=== PATIENT | female | born 1995 | race Caucasian/White ===

== ENCOUNTER 2024-02-09 02:17 | Outpatient (CLI) | payer BC, SELFPAY ==
[2024-02-09 15:41] LABS: Abs Immature Grans 0.02 10^3/uL (0.0-0.06); Absolute Basophil Count 0.03 10^3/uL (0.0-0.2); Absolute Eosinophil Count 0.03 10^3/uL (0.0-0.7); Absolute Lymphocyte Count 1.15 10^3/uL (1.2-3.4); Absolute Monocyte Count 0.49 10^3/uL (0.1-0.8); Absolute Neutrophil Count 6.36 10^3/uL (1.2-6.7); Basophils % 0.4 %; Eosinophils % 0.4 %; HCT 40.9 % (36.0-46.0); HGB 13.7 g/dL (11.2-15.7); Immature Grans % 0.2 %; Lymphocytes % 14.2 %; MCH 30.6 pg (27.0-33.0); MCHC 33.5 % (32.0-36.0); MCV 92 fL (80-95); MPV 11.4 fL (8.0-11.0); Monocytes % 6.1 %; Neutrophils % 78.7 %; Platelet Count 247 10^3/uL (130-400); RBC 4.47 10^6/uL (3.93-5.22); RDW 12.2 % (11.7-14.6); RDW-SD 41.1 fL; WBC 8.08 10^3/uL (4.4-10.8)
[2024-02-09 17:21] LABS: TSH (W/Ref FT4) 0.78 uIU/mL (0.36-3.74)
[2024-02-09 17:39] LABS: Panorama Kit Sent via Fed Ex
[2024-02-10 08:54] LABS: Hepatitis B Surface Ag Negative (Negative)
[2024-02-10 09:34] LABS: Hepatitis C Ab w Rflx HCV PCR Negative (Negative)
[2024-02-10 09:42] LABS: HIV-1/2 Ag & Ab Screen Negative (Negative)
[2024-02-10 11:09] LABS: Varicella IgG Antibody Negative (See Note)
[2024-02-10 11:12] LABS: Rubella IgG Ab (UVM) Positive (See Note)
[2024-02-11 15:49] LABS: Syphilis IgG w/Reflex Nonreactive (Nonreactive)
[2024-02-18 10:16] LABS: Specimen WB Whole Blood
[2024-02-29 14:36] LABS: Result Summary NEGATIVE; Specimen WB Whole Blood
== END 2024-02-09 02:18 | disposition home or self-care (01) ==
LOC: LBO 02:18
PROVIDERS: Visit Provider Advanced Practice Midwife
DX: Z34.91 Encounter for supervision of normal pregnancy, unspecified, first trimester (principal); I49.9 Cardiac arrhythmia, unspecified; E84.9 Cystic fibrosis, unspecified
CPT/HCPCS: 36415; 81220; 81222; 81329; 86787; 86803; 86850; 86900; 86901; 87340; 87389; 84443; 85025; 86762; 86780

== ENCOUNTER 2024-02-09 14:41 | Outpatient (REF) | payer BC, SELFPAY ==
[2024-02-10 12:21] LABS: Chlamydia Result Negative (Negative); GC Result Negative (Negative)
== END 2024-02-09 14:42 | disposition home or self-care (01) ==
LOC: LBN 14:41
PROVIDERS: Visit Provider Advanced Practice Midwife
DX: Z34.91 Encounter for supervision of normal pregnancy, unspecified, first trimester (principal); Z3A.12 12 weeks gestation of pregnancy
CPT/HCPCS: 87491; 87591; 87086

== ENCOUNTER 2024-05-29 02:16 | Outpatient (CLI) | payer BC, SELFPAY ==
[2024-05-29 11:15] LABS: HCT 35.8 % (36.0-46.0); MCH 31.3 pg (27.0-33.0); MCHC 33.5 % (32.0-36.0); MCV 94 fL (80-95); MPV 10.5 fL (8.0-11.0); Platelet Count 224 10^3/uL (130-400); RBC 3.83 10^6/uL (3.93-5.22); RDW 12.7 % (11.7-14.6); RDW-SD 43.5 fL
[2024-05-29 12:13] LABS: Glucose,1 Hr (Glucola) 122 mg/dL (80-140)
== END 2024-05-29 02:17 | disposition home or self-care (01) ==
PROVIDERS: Visit Provider Advanced Practice Midwife
DX: Z34.92 Encounter for supervision of normal pregnancy, unspecified, second trimester (principal)
CPT/HCPCS: 36415; 82950; 85027; 86850; 90384

== ENCOUNTER 2024-07-27 19:17 | Outpatient (REF) | payer BC, SELFPAY | END 2024-07-27 19:18 | disposition home or self-care (01) | LOC: LBN 19:17 | PROVIDERS: Visit Provider Advanced Practice Midwife | DX: Z34.93 Encounter for supervision of normal pregnancy, unspecified, third trimester (principal) | CPT/HCPCS: 87081 ==

== ENCOUNTER 2024-08-11 16:32 | Inpatient (IN) | payer BC, SELFPAY ==
[2024-08-11] VITALS (7 sets, daily range): BP systolic 112–130; BP diastolic 77–87; PULSE 78–89; RESP 16; TEMP 36.6–37; O2SAT 100
--- NOTE | 2024-08-11 16:33 | HPE_ITS ---
Date of service: 08/11/24 Time of Service: 16:33 Assessment and Plan Assessment and plan (1) PROM (premature rupture of membranes): Status: Acute Assessment and plan: A: 28 yo G1 @ 38+5 wks, PROM confirmed, clear fluid Category 1 tracing, GBS negative, favorable cvx w/momin score=8 No increased risk for SD or PPH P: Discussed options in plan of care with pt, including risks and benefits Recommendation to begin pitocin induction reviewed Pt prefers to delay pitocin infusion, opts for ambulation& expectant management Intermittent auscultation, oral intake, comfort measures as requested Anticipate FABBY, Dr. Bell available for consult prn (2) Penicillin allergy: Status: Acute Assessment and plan: [facility] [place] allergy consult determined PCN allergy is potentially severe Recommended to avoid all beta-latam's (3) Rh negative state in antepartum period: Status: Acute Assessment and plan: Plan RhoGam if indicated by cord blood results (4) 38 weeks gestation of : Status: Acute OB-HPI Labor/Delivery History of Present Illness Reason for Visit: PROM at 38 wks Chief Complaint: Suspected Rupture of Membranes , Associated Signs and Symptoms of Suspected ROM: large gush of fluids at 1050 today, persistent trickling ever since, occasional uterine contraction that is stronger than BH contractions.. DOMINGO Calculator Estimated Delivery Date Method Current WG Current Estimate 08/20/24 LMP (Certain) 38w 5d Other Estimates 08/23/24 Ultrasound #1 38w 2d History of Present Expected Delivery Route/Plan - CNM FOB/ - [place] (first child) BG- Varicella non-immune, offer vaccine Interested in [employer] bir[facility] classes Would like to use the tub for labor GBS negative Specific Issues/Plan 1. Genetic testing options - cfDNA low risk female, SMA-neg, CF neg, declines AFP 2. Irregular heart rate - EKG shows PVCs at primary care office. 3. History of anxiety and depression, treated with medications in the past, sees a therapist regularly. TSH 0.78 4. Rh neg, FOB is A+, Rhogam at 28 weeks, on 05/29/24 5. PCN age 7: severe hives & face/throat swollen, to ED & stayed overnight, not admitted 5a. [facility] [place] allergy consult: see scanned note, recommend avoid all beta-lactam's , plan clinda or Vanc if GBS+ 6. Desires LC consult after 36 wks ___ 7. 20 wk U/S with echogenic bowel foci, radiologist's impression that this is of no clinical significance Assessment: History Reviewed & Current Informed Consent Informed Consent: Induction of Labor (discussed recommended use of pitocin to b ring on labor after PROM, pt declines at this time) and Risk,Benefits,Alternatives Discussed Review of Systems Narrative: ROS completed and found to be noncontributory other than HPI PFSH All Active Problems (Updated 08/11/24 @ 17:04 by Tracy Adams) 38 weeks gestation of (Acute) PROM (premature rupture of membranes) (Acute) Penicillin allergy (Acute) Migraine (Chronic) Maternal varicella, non-immune (Acute) Rh negative state in antepartum period (Acute) Irregular heart rhythm (Acute) EKG with PCP 11/2023 (Acute) Medical History (Updated 08/11/24 @ 17:04 by Tracy Adams) Penicillin adverse reaction Depression Anxiety Buspirone in the past Surgical History (Updated 02/09/24 @ 13:23 by Alecia Lechuga CNM) History of cholecystectomy 11/2021 at [facility] Family History (Updated 02/09/24 @ 13:28 by Alecia Lechuga CNM) Mother Autoimmune disease History of cholecystectomy Depression Maternal Grandmother Hypertension History of cholecystectomy Depression Social History Smoking/Tobacco Use Status: Never Smoking risk assessment performed?: Yes Alcohol Intake: never Drug use: Never Substance use type: does not use Housing: house Do you feel safe at home: Yes Do you feel safe in your relationship?: Yes History History 2 Para 0 Hx # Term Pregnancies 0 Multiple births 0 Hx # Pregnancies 0 Ectopic pregnancies 0 AB induced 0 Hx Number of Living Children 0 AB spontaneous 1 Past Pregnancies Del. Date GA/Weeks # Preg Succ Route Wgt Sex Labor Lgth Anesth esia Location Prov Complic 05/27/22 No Meds Allergies and Home Medications Allergies Allergy/AdvReac Type Severity Reaction Status Date / Time Penicillins Allergy Other (See Verified 08/04/24 15:27 Comment) Home Medications ?Medication ?Instructions ?Recorded ?Confirmed ?Type vitamin#30 30 mg iron-10 1 cap PO .QD 01/17/24 08/11/24 History mg iron-folic acid 1 mg-omg3 capsule Exam Physical Exam Vital signs: Pulse BP 89 112/77 08/11/24 16:14 08/11/24 16:14 Vital Signs Reviewed: Yes Constitutional Constitutional: no acute distress, average body habitus and cooperative Detailed Labor and Delivery Exam Dilation: 3 Effacement (%): 80 station: -3 Cervix position: mid Consistency: soft MOMIN Score(Cervical Ripeness Score): 8 Amniotic Membrane Status: Ruptured Rupture Method: Spontaneous Pooling: Positive Nitrazine: Positive Ferning: Present Contraction Frequency(min): iregular, q5-7 Contraction Intensity: Mild Fetus A Heart Rate Baseline: 145 Monitor Accelerations: 15 X 15 Monitor Decelerations: None Variability: Moderate (6-25 BPM) Categories: Category I Est. Weight: 7 lb 7.931 oz Est. Weight: 3400 gms Date of Membrane Rupture: 08/11/24 Time of Membrane Rupture: 10:50 HEENT Exam HEENT Exam: Normal Neck Exam Neck Exam: Normal Chest/Brest/Axilla Exam Chest Exam: Normal Breast Exam Breast Exam: Not Done Respiratory Exam Respiratory Exam: Normal Cardiovascular Exam Cardiovascular Exam: Normal Abdominal Exam Abdominal Exam: Normal (gravid, nontender) Rectal Exam Rectal Exam: Normal Exam Exam: Normal Extremities Exam Extremities Exam: Normal Back/Spine/Pelvis Exam Back Exam: Normal Pelvis Adequate: Yes Skin Exam Skin Exam: Normal Neurological Exam Neurological Exam: Normal Psychiatric Exam Psychiatric Exam: Normal Results Results Group Beta Strep: Negative Blood Type: A- (rec'ed RhoGam at 28 wks) Rubella Status: Immune Varicella Immunity: Nonimmune Risk Assessment Risk for Shoulder Dystocia Historical/Initial OB: NEGATIVE FOR: Pelvic Abnormality, Pre- BMI>30, Previous Shoulder Dystocia or Previous Macrosomia 36 Weeks: POSITIVE FOR: Maternal Weight Gain>40lbs; NEGATIVE FOR: Current Gestational DM or EFW>4500gms Increased Risk?: No Counseling: risk due to primipara status and elevated BMI/wt gain Delivery Plan @ 36wks: Risk for Pre-Eclampsia Yes, if one or more: NEGATIVE FOR: Hx Pre-E/Gest HTN, Chronic HTN, Multiple Gestation, Pre-gestational DM, Renal Disease, Systemic Lupus or APA Syndrome Yes, if 2 or more: POSITIVE FOR: Nulliparity; NEGATIVE FOR: Age>= 35 yrs, >10yr btwn pregnancies, BMI>30, ethinicty, Mother/Sister w/ Pre-E or Previous IUGR Risk for Post- Hemorrhage Initial: NEGATIVE FOR: Multiple Gestation, Previous PPH, Known Clotting Deficiency, Grand Multiparity or Anticoagulation 36 Weeks: NEGATIVE FOR: Anemia, hgb<10, Low platelets(thrombocytopenia), Gesta tional HTN or Pre-E, Polyhydraminios or EFW>4500gms At Risk?: No Counseled re: Active Management: Yes Risks Reviewed Risks Reviewed Upon Admission: Yes
[2024-08-11 17:07] LABS: HCT 37.3 % (36.0-46.0); HGB 12.5 g/dL (11.2-15.7); MCH 30.1 pg (27.0-33.0); MCHC 33.5 % (32.0-36.0); MCV 90 fL (80-95); MPV 11.6 fL (8.0-11.0); Platelet Count 217 10^3/uL (130-400); RBC 4.15 10^6/uL (3.93-5.22); RDW 13.3 % (11.7-14.6); RDW-SD 43.7 fL; WBC 11.27 10^3/uL (4.4-10.8)
--- NOTE | 2024-08-11 22:51 | W.PM.OBNL1 ---
Date of service: 08/11/24 Time of Service: 22:51 Pelvic Exam Dilation: 5 Effacement (%): 90 station: -2 Cervix Position: mid Consistency: soft Contractions Monitor Mode: External Contraction Frequency(min): q4-5 Intensity: Moderate Fetus A Monitor: External (US) Heart Rate Baseline: 140 Variability: Moderate (6-25 BPM) Categories: Category I Accelerations: Present Decelerations: None Amniotic Membrane Status: Ruptured Assessment and Plan Assessment and plan (1) PROM (premature rupture of membranes): Status: Acute Assessment and plan: A: PROM x12 hrs, early labor becoming more active pt declines pitocin augmentation, is coping well afebrile and normotensive P: Continue expectant management Anticipate Objective Abnormal lab results 08/11/24 Range/Units 16:53 WBC 11.27 H (4.4-10.8) 10^3/uL MPV 11.6 H (8.0-11.0) fL Temp Pulse Resp BP Pulse Ox 98.2 F 85 16 130/87 100 08/11/24 22:15 08/11/24 22:15 08/11/24 22:15 08/11/24 22:15 08/11/24 22:15 Laboratory Results WBC 11.27 10^3/uL (4.4-10.8) H 08/11/24 16:53 RBC 4.15 10^6/uL (3.93-5.22) 08/11/24 16:53 Hgb 12.5 g/dL (11.2-15.7) 08/11/24 16:53 Hct 37.3 % (36.0-46.0) 08/11/24 16:53 MCV 90 fL (80-95) 08/11/24 16:53 MCH 30.1 pg (27.0-33.0) 08/11/24 16:53 MCHC 33.5 % (32.0-36.0) 08/11/24 16:53 RDW 13.3 % (11.7-14.6) 08/11/24 16:53 Plt Count 217 10^3/uL (130-400) 08/11/24 16:53 MPV 11.6 fL (8.0-11.0) H 08/11/24 16:53 ABO/Rh A Negative 08/11/24 16:53 Antibody Screen POSITIVE 08/11/24 16:53 Antibody Identification Anti-D 08/11/24 16:53 Vital Signs Reviewed: Yes Subjective Interval history since last seen: Contractions are strengthening, has been up ambulating in the room, tried physioball, also rested in bed, tolerating PO intake
[2024-08-12] VITALS (38 sets, daily range): BP systolic 118–146; BP diastolic 63–88; PULSE 78–130; RESP 16; TEMP 36.4–38.8; O2SAT 94–100
--- NOTE | 2024-08-12 04:00 | W.PM.OBNL1 ---
Date of service: 08/12/24 Time of Service: 04:28 Pelvic Exam Dilation: 7 (RN exam @ 0330) Effacement (%): 90 station: -2 Contractions Monitor Mode: Palpation Contraction Frequency(min): q2-4 Intensity: Moderate/Strong Fetus A Monitor: Doppler Heart Rate Baseline: 150 FHR Rhythm: Regular Characteristics: Normal Amniotic Membrane Status: Ruptured Assessment and Plan Assessment and plan (1) PROM (premature rupture of membranes): Status: Acute Assessment and plan: A: Spontaneous active labor after PROM, progressed to 7 cm Clear fluid, FHT by intermittent auscultation reassuring GBS negative, afebrile, normotensive P: Pt entered tub @ 0330, will continue expectant management Anticipate Objective Abnormal lab results 08/11/24 Range/Units 16:53 WBC 11.27 H (4.4-10.8) 10^3/uL MPV 11.6 H (8.0-11.0) fL Temp Pulse Resp BP Pulse Ox 98.8 F 81 16 120/79 100 08/12/24 04:00 08/12/24 03:01 08/11/24 22:15 08/12/24 03:01 08/11/24 22:15 Laboratory Results WBC 11.27 10^3/uL (4.4-10.8) H 08/11/24 16:53 RBC 4.15 10^6/uL (3.93-5.22) 08/11/24 16:53 Hgb 12.5 g/dL (11.2-15.7) 08/11/24 16:53 Hct 37.3 % (36.0-46.0) 08/11/24 16:53 MCV 90 fL (80-95) 08/11/24 16:53 MCH 30.1 pg (27.0-33.0) 08/11/24 16:53 MCHC 33.5 % (32.0-36.0) 08/11/24 16:53 RDW 13.3 % (11.7-14.6) 08/11/24 16:53 Plt Count 217 10^3/uL (130-400) 08/11/24 16:53 MPV 11.6 fL (8.0-11.0) H 08/11/24 16:53 ABO/Rh A Negative 08/11/24 16:53 Antibody Screen POSITIVE 08/11/24 16:53 Antibody Identification Anti-D 08/11/24 16:53 Vital Signs Reviewed: Yes Subjective Interval history since last seen: Pt showered and ambulated, now using the tub for comfort, vocalizing with contractions, reports pelvic pressure with contractions.
--- NOTE | 2024-08-12 05:27 | W.PM.OBNL1 ---
Date of service: 08/12/24 Time of Service: 05:27 Pelvic Exam Dilation: 8 Effacement (%): 100 station: +1 Contractions Monitor Mode: Palpation Contraction Frequency(min): q2-4 Fetus A Monitor: External (US) Heart Rate Baseline: 145 Variability: Moderate (6-25 BPM) Categories: Category I Decelerations: None Amniotic Membrane Status: Ruptured Assessment and Plan Assessment and plan (1) PROM (premature rupture of membranes): Status: Acute Assessment and plan: A: Transition stage with palpable descent, 8/100% vtx +1 P: Pt assisted out of the tub to bed, now using nitrous to good effect 10 minute EFM tracing fro category 1 FHT obtained Anticipate (2) Normal labor: Status: Acute Objective Vital Signs Reviewed: Yes Subjective Interval history since last seen: Increased pain with contractions, grunting audible at peak of contractions, pt states she feels very tired, is teary and not sure what to do. Requests SVE in tub.
--- NOTE | 2024-08-12 07:16 | W.PM.OBNL1 ---
Date of service: 08/12/24 Time of Service: 07:16 Informed Consent Informed Consent: Augmentation of Labor (pt consents) and Risk,Benefits,Alternatives Discussed Pelvic Exam Dilation: 9 Effacement (%): 100 station: +1 Position: ROT Consistency: soft Contractions Monitor Mode: External Contraction Frequency(min): q3-5 Intensity: Moderate/Strong Fetus A Monitor: External (US) Heart Rate Baseline: 145 Variability: Moderate (6-25 BPM) Categories: Category I Decelerations: None Amniotic Membrane Status: Ruptured Assessment and Plan Assessment and plan (1) PROM (premature rupture of membranes): Status: Acute Assessment and plan: A: Inadequate contraction pattern at 8-9 cm, descent to +1 station No cervical edema or caput palpable on exam PROM x20 hrs, category 1 tracing, fluid clear, afebrile P: IV access, LR @ 150 ml/hr and low dose pitocin augmentation Continuous EFM, anticipate when contraction pattern is adequate Objective Vital Signs Reviewed: Yes Objective Narrative Objective Narrative: Pt dozing between contractions, nitrous has been effective Discussed decreasing contraction frequency with pt Encouraged pt consent for IV hydration and pitocin augmentation Pt and FOB consent, questions answered to their satisfaction Offered IV or regional pain management options, pt declines Subjective Interval history since last seen: Pt dozing between contractions, feels thirsty and nauseated, very tired, using nitrous effectively
[2024-08-12] MEDS: Normal Saline Flush 10 ML SYR IVP ×3 (07:30→22:11)
[2024-08-12] MEDS: Lactated Ringers 1,000 ML 125 ML IV (07:41)
[2024-08-12] MEDS: Oxytocin/Normal Saline 30 UNIT/500 ML BAG 2 UNITS IV (07:42)
--- NOTE | 2024-08-12 08:54 | W.PM.OBNL1 ---
Date of service: 08/12/24 Time of Service: 08:54 Informed Consent Informed Consent: Augmentation of Labor (pt consents) and Risk,Benefits,Alternatives Discussed Pelvic Exam Dilation: 9.5 (rim) station: +1 (+1/+2 during contraction) Contractions Monitor Mode: External Contraction Frequency(min): q2-4 minutes Intensity: Moderate/Strong Fetus A Monitor: External (US) Heart Rate Baseline: 135 Variability: Moderate (6-25 BPM) Categories: Category I Accelerations: Present Decelerations: Early Amniotic Membrane Status: Ruptured Assessment and Plan Assessment and plan (1) PROM (premature rupture of membranes): Status: Acute Assessment and plan: A: pitocin @ 4mu/min, pt reports she can feel the contractions are stronger attempted IUPC insertion but as pt is unmedicated she did not tolerate advancement of catheter SVE for palpable progress to a rim of cvx with head descending to +@ at peak of contraction EFM remains category 1 P: @ 23 hrs ROM, will give clindamycin 900 mg IV d/t prolonged SROM Begin coached pushing efforts when cervical rim recedes to full dilation Dr. Bell has been updated on pt status via phone; Peds aware as well Anticpating this morning Objective Vital Signs Reviewed: Yes Objective Narrative Objective Narrative: Pt willing to try IUPC insertion to assist with pitocin titration Remains unmedicated except for nitrous inhalant FOB bedside providing effective support Subjective Interval history since last seen: feeling some involuntary urges to bear down at peak of contractions, using nitrous, tired and wishing to be done.
[2024-08-12] MEDS: CLINDAMYCIN 900 MG/50 ML BAG 50 MG IVPB ×2 (09:08→17:53)
[2024-08-12] MEDS: miSOPROStol 100 MCG TAB 600 MCG PO (09:58)
[2024-08-12] MEDS: Methylergonovine 0.2 MG/ML VIAL IM (09:58)
[2024-08-12] MEDS: Benzocaine 20% 60 ML CAN TP (10:00)
--- NOTE | 2024-08-12 10:44 | OBVDS_ITS ---
Date of service: 08/12/24 Time of Service: 10:30 OB Labor/ Delivery Information Baby A Delivery Delivery Method: Spontaneaous Presentation: Cephalic Cephalic Position: Vertex Vertex Position: Right Occipital Anterior Breech Position: N/A Cord Description-Baby A: 3 Vessels Amniotic Fluid: Clear Quantitative Blood Loss: 600 Delivery Outcome: Liveborn Infant Transferred: Remains with Mother Note: Pitocin augmentation up to 5 mu/min resulted in descent and progression to full dilation, pt made strong expulsive efforts accomplishing of a vigorous female infant over attempted intact perineum, shoulders delivered easily and infant to mother's arms immediately, bulb sx of mouth and nose for excessive mucous. Cord ceased pulsating and was clamped then cut by FOB, cord blood collected. pitocin IV bolus begun, [place] placenta delivered intact with 3VC, brisk bleeding controlled with fundal massage and methergine 0.2 mg IM, pt also given 600 mcg misoprostel PO as precaution. 2nd degree perineal laceration repaired under topical Hurricaine aerosol spray with 3.0 Vicryl, no other lacerations visualized, fundus firm below umbilicus, vaginal sweep did not yield clots and lochia is minimal. Strong family bonding observed, apgars 8/9, weight 3165 gms. Providers Nurse Trick Rodeo Rider: Tracy Adams Nurse: Karen Munoz Nurse: Elmira Rosenberg Labor/Delivery Information Number of Babies in Womb: 1 Steroids Given: None Group Beta Strep: Negative Antibiotics Administered: Yes Number of Doses of Antibiotics: 1 (clindamycin 900 mg immediately prior to delivery) Rubella Status: Immune Blood Type: A- Varicella Immunity: Nonimmune Medication in Delivery: pitocin bolus, methergine 0.2mg IM and miso 600 mcg PO Maternal Complications: Premature Rupture of Membranes Shoulder Dystocia: No Stages of Labor Onset of Labor Date: 08/11/24 Onset of Labor Time: 22:42 Complete Dilatation Date: 08/12/24 Complete Dilatation Time: 09:17 Labor - Stage 1 Duration: 10 hours and 35 minutes ROM Baby A: 08/11/24 ROM Baby A: 10:50 Delivery Date-Baby A: 08/12/24 Infant Delivery Time-Baby A: 09:48 Labor Stage 2 Duration: 31 minutes Placenta Delivery Date-Baby A: 08/12/24 Placenta Delivery Time-Baby A: 09:54 Labor-Stage 3 Duration: 6 minutes Total Length of Labor-Baby A: 11 hours and 6 minutes Baby A Infant Gender: Female Gestational Status: Early Term (37-38.6 wks) weight: 6 lb 15.642 oz Weight Comment: 3165 gms Score-1 Minute Interval(Baby A) Heart Rate-1 minute: 100 BPM or Greater Respiratory Effort- 1 minute: Spontaneous/Strong Cry Muscle Tone-1 minute: Active Movement Reflex Response-1 minute: Prompt Response Color-1 minute: Pallor or Cyanosis Score-5 Minute Interval(Baby A) Heart Rate- 5 minute: 100 BPM or Greater Respiratory Effort-5 minute: Spontaneous/Strong Cry Muscle Tone-5 minute: Active Movement Reflex Response-5 minute: Prompt Response Color-5 minute: Bluish Hands or Feet
[2024-08-12] MEDS: Acetaminophen 325 MG TAB 650 MG PO ×2 (12:55→19:33)
[2024-08-12] MEDS: Hamamelis Leaf/Glycerin 100 EACH BOX PR (12:56)
[2024-08-12] MEDS: Ibuprofen 600 MG TAB PO ×2 (12:56→19:34)
[2024-08-12] MEDS: Dibucaine 1% 28 GM TUBE TP (12:57)
--- NOTE | 2024-08-12 14:39 | OBPPV_ITS ---
Date of service: 08/12/24 Time of Service: 14:39 Assessment and Plan Assessment and plan (1) Term delivered: Status: Acute (2) Fever during puerperium: Status: Acute Assessment and plan: A: temp spike in early period s/p clindamycin 900 mg IV x1 prior to delivery hemodynamically stable with nml BP & pulse P: Continue clindamycin 900 mg IV q8 hrs Gentamicin 2 mg/kg x1 then 1.5 mg/kg q8 hrs CBC this evening and repeat in the morning Consult with Dr. Bell completed Continue ATB therapy until pt afebrile for >24 hrs Subjective Subjective Interval history: Pt recovering from delivery, walking and voiding qs but feeling quite warm. Drinking and eating without difficulty. Patient comments: Pain well controlled, Tolerating diet and Flatus present Patient's Mood: happy though exhausted [place] feeding status: Exclusively breast feeding Exam Physical Exam Vital signs: Temp Pulse Resp BP Pulse Ox 101.8 F H 97 H 16 139/65 100 08/12/24 12:56 08/12/24 12:14 08/11/24 22:15 08/12/24 12:14 08/12/24 09:43 Vital Signs Reviewed: Yes Constitutional Constitutional: no acute distress, average body habitus and cooperative HEENT Exam HEENT Exam: Normal Neck Exam Neck Exam: Normal Respiratory Exam Respiratory Exam: Normal Cardiovascular Exam Cardiovascular Exam: Normal (normotensive, pulse 83) Abdominal Exam Abdomen: Other (nontender, soft) Fundal Exam Fundus: Below Umbilicus and Firm Rectal Exam Rectal Exam: Normal Exam Perineum: Repair Intact Extremities Exam Extremity Exam: Normal, Full ROM and Warm to Touch Back/Spine/Pelvis Exam Back Exam: Normal Skin Exam Skin Exam: Normal Neurological Exam Neurological Exam: Normal Psychiatric Exam Psychiatric Exam: Normal
[2024-08-12 17:42] LABS: Abs Immature Grans 0.08 10^3/uL (0.0-0.06); Absolute Basophil Count 0.04 10^3/uL (0.0-0.2); Absolute Lymphocyte Count 1.18 10^3/uL (1.2-3.4); Absolute Monocyte Count 1.34 10^3/uL (0.1-0.8); Basophils % 0.2 %; HCT 36.9 % (36.0-46.0); HGB 12.9 g/dL (11.2-15.7); Immature Grans % 0.4 %; Lymphocytes % 6.5 %; MCH 30.9 pg (27.0-33.0); MCV 89 fL (80-95); MPV 11.5 fL (8.0-11.0); Monocytes % 7.4 %; Neutrophils % 85.5 %; Platelet Count 218 10^3/uL (130-400); RBC 4.17 10^6/uL (3.93-5.22); RDW 13.3 % (11.7-14.6); RDW-SD 43.6 fL; WBC 18.16 10^3/uL (4.4-10.8)
[2024-08-12 17:50] LABS: Absolute Neutrophil Count 15.53 10^3/uL (1.2-6.7)
[2024-08-13] MEDS: Normal Saline Flush 10 ML SYR IVP ×3 (00:44→09:07)
[2024-08-13] MEDS: Acetaminophen 325 MG TAB 650 MG PO ×4 (00:44→20:08)
[2024-08-13] MEDS: CLINDAMYCIN 900 MG/50 ML BAG 50 MG IVPB ×2 (00:46→09:05)
[2024-08-13] MEDS: Ibuprofen 600 MG TAB PO ×4 (00:46→20:09)
[2024-08-13] MEDS: Docusate Sodium 100 MG CAP PO ×2 (00:46→14:18)
[2024-08-13 07:00] LABS: HCT 35.2 % (36.0-46.0); HGB 11.9 g/dL (11.2-15.7); MCH 30.7 pg (27.0-33.0); MCHC 33.8 % (32.0-36.0); MCV 91 fL (80-95); MPV 10.9 fL (8.0-11.0); Platelet Count 187 10^3/uL (130-400); RBC 3.87 10^6/uL (3.93-5.22); RDW 13.8 % (11.7-14.6); RDW-SD 45.7 fL; WBC 12.22 10^3/uL (4.4-10.8)
[2024-08-13 09:00] VITALS: BP 125/72; PULSE 80; RESP 16; TEMP 36.7; O2SAT 98
--- NOTE | 2024-08-13 10:45 | OBPPV_ITS ---
Date of service: 08/13/24 Time of Service: 10:00 Assessment and Plan Assessment and plan (1) Fever during puerperium: Status: Acute (2) Term delivered: Status: Acute Assessment and plan: A: PPD#1, afebrile since 1300 yesterday Receiving clindamycin and gentamicin IV WBC decreased this morning from 18 to 12 well, satisfied with delivery experience P: Discussed status with Dr. Bell Will discontinue ATB's after 1400 today Observe for rebound temperature or sx of endometritis Plan for discharge tomorrow if pt remains afebrile and well RhoGam and Varicella vaccine to be given today Subjective Subjective Patient comments: No complaints, Pain well controlled, Tolerating diet and Flatus present Patient's Mood: good baby status: Doing well, Nursing well, Rooming in and Strong Bonding Observed [place] feeding status: Exclusively breast feeding Narrative: Infant receiving ATB's IV and blood cultures pending d/t prolonged PROM and maternal fever yesterday Exam Physical Exam Vital signs: Temp Pulse Resp BP Pulse Ox 98.0 F 80 16 125/72 98 08/13/24 09:00 08/13/24 09:00 08/13/24 09:00 08/13/24 09:00 08/13/24 09:00 Vital Signs Reviewed: Yes Constitutional Constitutional: no acute distress, average body habitus and cooperative HEENT Exam HEENT Exam: Normal Neck Exam Neck Exam: Normal Breast Exam Bilateral: Breast Exam: Normal and Soft Nipple Exam: Normal and Uninjured Respiratory Exam Respiratory Exam: Normal Cardiovascular Exam Cardiovascular Exam: Normal Abdominal Exam Abdomen: Other (soft, nontender) Fundal Exam Fundus: Below Umbilicus and Firm Rectal Exam Rectal Exam: Normal Exam Perineum: Repair Intact Extremities Exam Extremity Exam: Normal, Full ROM and Warm to Touch Back/Spine/Pelvis Exam Back Exam: Normal Skin Exam Skin Exam: Normal Neurological Exam Neurological Exam: Normal Psychiatric Exam Psychiatric Exam: Normal Results Abnormal Lab Findings: Abnormal Labs 08/11/24 08/12/24 08/13/24 16:53 17:30 06:50 WBC 11.27 H 18.16 H 12.22 H RBC 3.87 L Hct 35.2 L MPV 11.6 H 11.5 H Absolute Neutrophils 15.53 H Absolute Lymphocytes 1.18 L Absolute Monocytes 1.34 H
[2024-08-13] MEDS: Dibucaine 1% 28 GM TUBE TP (14:20)
[2024-08-13 23:08] VITALS: BP 124/68; PULSE 82; TEMP 36.8
[2024-08-14] MEDS: Ibuprofen 600 MG TAB PO ×3 (03:10→16:21)
[2024-08-14] MEDS: Acetaminophen 325 MG TAB 650 MG PO ×3 (03:10→16:21)
[2024-08-14 08:00] VITALS: BP 127/86; PULSE 74; RESP 14; TEMP 36.8
--- NOTE | 2024-08-14 08:23 | W.PM.OBPNV1 ---
Date of service: 08/14/24 Time of Service: 08:23 Assessment and Plan Assessment and plan (1) Fever during puerperium: Status: Acute Assessment and plan: PPD#2, off ATB's x24 hrs and remains afebrile (2) Term delivered: Status: Acute Assessment and plan: A: PPD#2, afebrile for >45 hours well, satisfied with delivery experience P: Plan discharge today, if not discharged will change to boarder status Reviewed plan of care with Dr. Jane Pt plans condoms for contraception Written instructions reviewed and given to pt F/up at 2 & 6 wks Subjective Subjective Patient comments: No complaints, Pain well controlled, Tolerating diet and Flatus present Patient's Mood: happy [place] baby status: Nursing well, Rooming in and Strong Bonding Observed feeding status: Exclusively breast feeding Narrative: Baby receiving IV antibiotics while awaiting blood culture results, clinically well, feeding well. Exam Physical Exam Vital signs: Temp Pulse Resp BP Pulse Ox 98.2 F 82 16 124/68 98 08/13/24 23:08 08/13/24 23:08 08/13/24 09:00 08/13/24 23:08 08/13/24 09:00 Vital Signs Reviewed: Yes Constitutional Constitutional: no acute distress, average body habitus and cooperative HEENT Exam HEENT Exam: Normal Neck Exam Neck Exam: Normal Breast Exam Bilateral: Breast Exam: Normal and Soft Respiratory Exam Respiratory Exam: Normal Cardiovascular Exam Cardiovascular Exam: Normal Abdominal Exam Abdomen: Other (soft, nontender) Fundal Exam Fundus: Below Umbilicus and Firm Rectal Exam Rectal Exam: Normal Exam Perineum: Repair Intact Extremities Exam Extremity Exam: Normal, Full ROM and Warm to Touch Back/Spine/Pelvis Exam Back Exam: Normal Skin Exam Skin Exam: Normal Neurological Exam Neurological Exam: Normal Psychiatric Exam Psychiatric Exam: Normal
[2024-08-14] MEDS: Docusate Sodium 100 MG CAP PO (08:40)
[2024-08-14 08:56] VITALS: TEMP 36.6
[2024-08-14 09:45] LABS: HCT 36.2 % (36.0-46.0); HGB 12.1 g/dL (11.2-15.7); MCH 30.8 pg (27.0-33.0); MCHC 33.4 % (32.0-36.0); MCV 92 fL (80-95); MPV 11.2 fL (8.0-11.0); Platelet Count 196 10^3/uL (130-400); RBC 3.93 10^6/uL (3.93-5.22); RDW 13.7 % (11.7-14.6); RDW-SD 46.3 fL; WBC 8.79 10^3/uL (4.4-10.8)
--- NOTE | 2024-08-14 14:46 | DSE_ITS ---
Date of service: 08/14/24 Time of Service: 14:46 DS: Diagnosis Discharge Diagnosis (1) Fever during puerperium: Status: Acute (2) Term delivered: Status: Acute Discharge Plan Disposition Patient Disposition: Home Condition: Good Discharge Details Reason For Visit: PROM at 38 wks Admit Date/Time: 08/11/24 16:32 Admit Provider: Tracy Adams Attending Provider: Tracy Adams Primary Care Provider: Unknown,Unknown Hospital Course Hospital Course: Admitted with PROM no labor, GBS negative, recommended to pt pitocin induction per guidelines, pt declined in favor of waiting for spontaneous labor for 12 hrs, labor did begin and she slowly progressed to transition where progress seemed to stall, low dose pitocin augmentation was initiated after pt consented with excellent response, prophylactic clindamycin IV given just prior to 24 hrs ROM and delivery. at 22-23 hrs ROM without complication. Two hours pt's temperature spiked and after MD consult antibiotics for possible endometritis were continued (clinda and gent). After 24 hours without a fever medications were discontinued on PPD#1. On PD#2 (HD#3) pt remains afebrile and feeling well, , desires discharge when infant is discharged. Home Meds and New Rx's Prescriptions: No Action PNV #[id number] 30 mg iron-10 mg iron-1 mg capsule 1 cap PO .QD Discharge Instructions Additional Instructions: Please keep your 2 and 6 week appointments with the midwives, and call for any concerns or questions. Stand Alone Forms: BC Instructions, BC Post Vaginal Deliver Activity:: Activity as Tolerated Equipment/Supplies:: No Equipment Needed Diet:: Normal Diet OB:DS Summary Summary Vaginal Delivery Method: Spontaneaous Laceration Description: Perineal Laceration Extension: Second Degree Contraception Discussed Contraception Discussed: Yes Contraceptive Plan: Foam/Condoms, [place] Gender-Baby A: Female weight: 6 lb 15.642 oz Status at Discharge Functional status at discharge: independent ambulation Overall status at discharge: patient is progressing back to baseline Mental Status: mental status grossly normal Speech and Movement: speech and movement normal and speech clear Mood: congruent mood Affect: normal affect Quality:SDOH Health Related Social Needs: No Data to Display Exam Physical Exam Vital signs: Temp Pulse Resp BP Pulse Ox 97.9 F 74 14 127/86 98 08/14/24 08:56 05/19/25 08:00 08/14/24 08:00 08/14/24 08:00 08/13/24 09:00 Constitutional Constitutional: no acute distress, average body habitus and cooperative HEENT Exam HEENT Exam: Normal Neck Exam Neck Exam: Normal Breast Exam Bilateral: Breast Exam: Normal and Soft Respiratory Exam Respiratory Exam: Normal Cardiovascular Exam Cardiovascular Exam: Normal Abdominal Exam Abdomen: Other (soft, nontender) Fundal Exam Fundus: Below Umbilicus and Firm Rectal Exam Rectal Exam: Normal Exam Perineum: Repair Intact Extremities Exam Extremity Exam: Normal, Full ROM and Warm to Touch Back/Spine/Pelvis Exam Back Exam: Normal Skin Exam Skin Exam: Normal Neurological Exam Neurological Exam: Normal Psychiatric Exam Psychiatric Exam: Normal PFSH All Active Problems (Updated 08/12/24 @ 14:44 by Tracy Adams) Fever during puerperium (Acute) Term delivered (Acute) Penicillin allergy (Acute) Migraine (Chronic) Maternal varicella, non-immune (Acute) Rh negative state in antepartum period (Acute) Irregular heart rhythm (Acute) EKG with PCP 11/2023 Medical History (Updated 08/12/24 @ 14:44 by Tracy Adams) PROM (premature rupture of membranes) 38 weeks gestation of Normal labor Penicillin adverse reaction Depression Anxiety Buspirone in the past Surgical History (Updated 02/09/24 @ 13:23 by Alecia Lechuga CNM) History of cholecystectomy 11/2021 at [facility] Family History (Updated 02/09/24 @ 13:28 by Alecia Lechuga CNM) Mother Autoimmune disease History of cholecystectomy Depression Maternal Grandmother Hypertension History of cholecystectomy Depression Social History Smoking/Tobacco Use Status: Never Smoking risk assessment performed?: Yes Alcohol Intake: never Drug use: Never Substance use type: does not use Housing: house Do you feel safe at home: Yes Do you feel safe in your relationship?: Yes History History 2 Para 0 Hx # Term Pregnancies 0 Multiple births 0 Hx # Pregnancies 0 Ectopic pregnancies 0 AB induced 0 Hx Number of Living Children 0 AB spontaneous 1 Past Pregnancies Del. Date GA/Weeks # Preg Succ Route Wgt Sex Labor Lgth Anesth esia Location [facility] 05/27/22 No DS: Data Vitals/I&O Vitals and I&O: Vital Signs Temperature 97.9 F 08/14/24 08:56 Temperature Source Tympanic 08/14/24 08:56 Pulse 74 08/14/24 08:00 Pulse Rhythm Regular 08/14/24 08:00 Respiratory Rate 14 08/14/24 08:00 Respiratory Depth Normal 08/13/24 23:00 Blood Pressure 127/86 08/14/24 08:00 Blood Pressure Mean 99 08/14/24 08:00 Pulse Oximetry 98 08/13/24 09:00 Pain Level 2 08/14/24 08:40 Comment Pt in tub 08/12/24 04:57 Intake & Output 08/13/24 08/14/24 08/14/24 23:59 11:59 23:59 Other: Urine Color Yellow Data Completed and Pending Labs on day of discharge: Labs from last 24 hours 08/14/24 09:25: WBC 8.79, RBC 3.93, Hgb 12.1, Hct 36.2, MCV 92, MCH 30.8, MCHC 33.4, RDW 13.7, Plt Count 196, MPV 11.2 H 08/13/24 06:50: Screen Negative 08/11/24 16:53: ABO/Rh A Negative, Antibody Screen POSITIVE, Antibody Identification Anti-D, Rhogam Unit Number [id number], Unit Expiration Date 02/28/2025, Product Lot # [id number]
[2024-08-14] MEDS: Dibucaine 1% 28 GM TUBE TP (16:21)
== END 2024-08-14 18:11 | disposition home or self-care (01) | DRG 805 ==
LOC: OBS 17:21 → BCD 08-14 10:35
PROVIDERS: Admitting Provider Advanced Practice Midwife; Visit Provider Advanced Practice Midwife
DX: O42.02 Full-term premature rupture of membranes, onset of labor within 24 hours of rupture (principal); O99.42 Diseases of the circulatory system complicating childbirth; Z37.0 Single live birth; O99.354 Diseases of the nervous system complicating childbirth; O75.2 Pyrexia during labor, not elsewhere classified; N71.0 Acute inflammatory disease of uterus; I49.3 Ventricular premature depolarization; Z67.91 Unspecified blood type, Rh negative; O26.893 Other specified pregnancy related conditions, third trimester; G43.909 Migraine, unspecified, not intractable, without status migrainosus; Z3A.38 38 weeks gestation of pregnancy; Z88.0 Allergy status to penicillin; O99.344 Other mental disorders complicating childbirth; F41.8 Other specified anxiety disorders; O70.1 Second degree perineal laceration during delivery
CPT/HCPCS: 36415; 85027; 85461; 86850; 86900; 86901; 90384; 90716; 59200; 85025; 86870; J0737; J1580; J2210

== ENCOUNTER 2025-01-15 10:36 | Outpatient (CLI) | payer BC, SELFPAY ==
[2025-01-15 10:10] LABS: HCT 39.7 % (36.0-46.0); HGB 13.5 g/dL (11.2-15.7); MCH 30.2 pg (27.0-33.0); MCHC 34.0 % (32.0-36.0); MCV 89 fL (80-95); MPV 10.1 fL (8.0-11.0); Platelet Count 275 10^3/uL (130-400); RBC 4.47 10^6/uL (3.93-5.22); RDW 11.9 % (11.7-14.6); RDW-SD 38.5 fL; WBC 5.58 10^3/uL (4.4-10.8)
[2025-01-15 11:19] LABS: ALT 21 U/L (14-59); AST 20 U/L (15-37); Albumin 3.7 g/dL (3.4-5.0); Alkaline Phosphatase 95 U/L (46-116); Anion Gap 9.8 mmol/L (3-11); BUN 9 mg/dL (7-18); Bilirubin, Total 0.5 mg/dL (0.2-1.0); CO2 27.2 mmol/L (21.0-32.0); Calcium 8.9 mg/dL (8.5-10.1); Chloride 104 mmol/L (98-107); Estimated GFR 119.99 (mL/min/1.73m2); Ferritin 53 ng/mL (8-252); Glucose 99 mg/dL (74-106); Potassium 4.0 mmol/L (3.5-5.1); Sodium 141 mmol/L (136-145); TSH (W/Ref FT4) 1.53 uIU/mL (0.36-3.74); Total Protein 7.3 g/dL (6.4-8.2); Vitamin B12 531 pg/mL (193-986)
[2025-01-15 11:20] LABS: Folate > 20.0 ng/mL (8.6-20.0)
[2025-01-19 15:09] LABS: 1,25-Dihydroxyvitamin D 60 pg/mL (18-78)
== END 2025-01-15 10:37 | disposition home or self-care (01) ==
LOC: LBO 10:38
PROVIDERS: PCP Advanced Practice Midwife; Visit Provider Advanced Practice Midwife
DX: R53.83 Other fatigue (principal)
CPT/HCPCS: 36415; 80053; 85027; 82607; 82652; 82728; 82746; 84443; 86038